=== PATIENT | female | born 1970 | race Caucasian/White ===

== ENCOUNTER 2018-03-06 18:12 | Emergency (ER) | payer BC ==
[2018-03-06] MEDS ORDERED: LORazepam 2 MG/ML SDV ONE (18:43)
[2018-03-06] MEDS ORDERED: LORazepam 2 MG/ML SDV IM ONE (18:47)
--- NOTE | 2018-03-06 21:14 | EDM.PDOCBH ---
ED HPI GENERAL MEDICAL PROBLEM - General Chief Complaint: Behavioral/Psych Stated Complaint: PANIC ATTACK Time Seen by Provider: 03/06/18 19:00 Source of Information: Reports: Patient, Family History Limitations: Reports: No Limitations - History of Present Illness INITIAL COMMENTS - FREE TEXT/NARRATIVE: This is a 47-year-old woman with history of depression and anxiety but has never been treated who suffered a panic attack today. She states that the panic attack started when her daughter and her boyfriend wanted to come over for dinner. Apparently the mother does not approve of the boyfriend and she began to feel like it was "the end of the world", she had shortness of breath, and felt an "impending doom". She states she hasn't had these feelings for years, the last time being when her son was born and she was told she would have to have a . She does admit to having a lot of stress in her life at the moment and that her daughter just recently graduated and is having a hard time with that as well. She has never seen a psychologist or psychiatrist and does not have a PCP in town. She denies any suicidal or homicidal ideation at this time. - Related Data Allergies Allergy/AdvReac Type Severity Reaction Status Date / Time aspirin Allergy Shortness Verified 03/06/18 18:39 of Breath Home Meds: Home Meds . [No Known Home Meds] 03/06/18 [History] Past Medical History - Past Health History Medical/Surgical History: Denies Medical/Surgical History Psychiatric History: Reports: Anxiety - Past Surgical History Female Surgical History: Reports: Section Social & Family History - Family History Family Medical History: Noncontributory - Tobacco Use Smoking Status *Q: Never Smoker - Recreational Drug Use Recreational Drug Use: No ED ROS GENERAL - Review of Systems Review Of Systems: ROS reveals no pertinent complaints other than HPI. ED EXAM, BEHAVIORAL HEALTH - Physical Exam Exam: See Below Exam Limited By: No Limitations General Appearance: Alert, WD/WN, Anxious Eye Exam: Bilateral Eye: EOMI, PERRL Respiratory/Chest: No Respiratory Distress, Lungs Clear, Normal Breath Sounds, No Accessory Muscle Use, Chest Non-Tender Cardiovascular: Normal Peripheral Pulses, Regular Rate, Rhythm, No Edema, No Gallop, No JVD, No Murmur, No Rub, Tachycardia GI/Abdominal: Normal Bowel Sounds, Soft, Non-Tender, No Organomegaly, No Distention, No Abnormal Bruit, No Mass Neurological: Alert, Normal Mood/Affect, CN II-XII Intact, Normal Cognition, Normal Gait, Normal Reflexes, No Motor/Sensory Deficits, Oriented x 3 Psychiatric: Alert, Normal Affect, Normal Cognition, Normal Mood, Oriented, Depressed Mood, Tearful. No: Homicidal Thoughts, Suicidal Plan, Suicidal Thoughts Skin Exam: Warm, Dry, Intact EKG INTERPRETATION EKG Date: 03/06/18 Rhythm: NSR Hepler: Normal P-Wave: Present QRS: Normal ST-T: Normal QT: Normal Comparison: NA - No Prior EKG COURSE, BEHAVIORAL HEALTH COMP - Course Vital Signs: Last Vital Signs Temp Pulse 105 H 03/06/18 18:36 Resp 32 H 03/06/18 18:36 BP 144/84 H 03/06/18 18:36 Pulse Ox 100 03/06/18 18:36 Orders, Labs, Meds: Active Orders 24 hr Category Date Time Status EKG Documentation Completion [RC] STAT Care 03/06/18 19:00 Active Medications Discontinued Medications Generic Name Dose Route Start Last Admin Trade Name Feliberto PRN Reason Stop Dose Admin Lorazepam Confirm 03/06/18 18:43 03/06/18 18:50 Ativan Administered 03/06/18 18:44 Not Given Dose 2 mg .ROUTE .STK-MED ONE Lorazepam 1 mg 03/06/18 18:47 03/06/18 18:49 Ativan IM 03/06/18 18:48 1 mg ONETIME ONE Administration Departure - Departure Time of Disposition: 21:15 Disposition: Home, Self-Care 01 Condition: Fair Clinical Impression: Anxiety, Panic attack as reaction to stress - Discharge Information *PRESCRIPTION DRUG MONITORING PROGRAM REVIEWED*: Not Applicable *COPY OF PRESCRIPTION DRUG MONITORING REPORT IN PATIENT KALLIE: Not Applicable Instructions: Panic Attack, [id number], Living With Anxiety Referrals: PCP,None [Primary Care Provider] - Forms: ED Department Discharge Additional Instructions: You were seen in the ED today for a panic attack. Your heart looked normal on EKG. We recommend that you follow up with a primary care doctor for a referral to a psychologist and/or psychiatrist for further treatment. For now you will be sent home with Lorazepam 1mg every 4-6 hours as needed for anxiety, 10 pills total. Take as needed for panic attack. - My Orders Last 24 Hours: My Active Orders 03/06/18 19:00 EKG Documentation Completion [RC] STAT - Assessment/Plan Last 24 Hours: My Active Orders 03/06/18 19:00 EKG Documentation Completion [RC] STAT
== END 2018-03-06 21:27 | disposition home or self-care (01) ==
LOC: JD.ED 18:12
DX: F41.0 Panic disorder [episodic paroxysmal anxiety] (principal); F43.9 Reaction to severe stress, unspecified; Z88.8 Allergy status to other drugs, medicaments and biological substances
CPT/HCPCS: 93005; 96372; 99283; J2060; 93010; 99284

== ENCOUNTER 2025-02-06 16:22 | Emergency (ER) | payer BC, OTHER ==
[2025-02-06] MEDS ORDERED: Sodium Chloride 0.9% 10 ML Syringe FLUSH PRN (16:38)
[2025-02-06 16:57] LABS: BASOPHILS ABSOLUTE AUTO 0.1 K/mm3 (0.0-0.2); BASOPHILS PERCENT AUTO 0.6 % (0.0-1.0); EOSINOPHILS ABSOLUTE AUTO 0.1 K/mm3 (0.0-0.4); EOSINOPHILS PERCENT AUTO 1.5 % (0.0-6.0); HEMATOCRIT 43.2 % (37.0-47.0); IMMATURE GRAN ABSOLUTE AUTO 0.03 K/mm3 (0.00-0.05); IMMATURE GRAN PERCENT AUTO 0.3 % (0.0-0.4); LYMPHOCYTES ABSOLUTE AUTO 2.2 K/mm3 (1.0-4.8); LYMPHOCYTES PERCENT AUTO 23.1 % (24.0-44.0); MEAN CORPUSCULAR HEMOGLOBIN 26.4 pg (28.0-32.0); MEAN CORPUSCULAR HGB CONC 32.4 g/dl (32.0-36.0); MEAN CORPUSCULAR VOLUME 81.5 fl (83.0-99.0); MEAN PLATELET VOLUME 10.1 fl (9.4-12.3); MONOCYTES ABSOLUTE AUTO 0.7 K/mm3 (0.0-0.8); MONOCYTES PERCENT AUTO 7.8 % (0.0-8.0); NEUTROPHILS ABSOLUTE AUTO 6.3 K/mm3 (1.8-7.7); NEUTROPHILS PERCENT AUTO 66.7 % (41.0-71.0); PLATELET COUNT,PLT 355 K/mm3 (150-400)
[2025-02-06 17:20] LABS: A/G RATIO 0.9 (1-2); ALANINE AMINOTRANSFERASE,ALT 44 U/L (14-59); ALBUMIN 3.8 g/dl (3.4-5.0); ALKALINE PHOSPHATASE 120 U/L (46-116); ANION GAP 12.8 (5-15); ASPARTATE AMNIOTRANSFERASE,AST 15 U/L (15-37); BILIRUBIN TOTAL 0.3 mg/dL (0.2-1.0); BLOOD UREA NITROGEN,BUN 18 mg/dL (7-18); CALCIUM 9.2 mg/dL (8.5-10.1); CARBON DIOXIDE,CO2 28 mEq/L (21-32); CHLORIDE,CL 100 mEq/L (98-107); CREATININE 0.9 mg/dL (0.55-1.02); EST CRCL DRUG DOSING (CG) 57.74 mL/min; ESTIMATED GFR 75 mL/min (>60); GLUCOSE RANDOM 104 mg/dL (70-99); POTASSIUM,K 3.8 mEq/L (3.5-5.1); PROTEIN TOTAL,TP 7.9 g/dl (6.4-8.2); SODIUM,NA 137 mEq/L (136-145)
[2025-02-06 17:25] LABS: TROPONIN I HIGH SENSITIVITY < 4 pg/mL (<=51)
== END 2025-02-06 18:45 ==
LOC: JD.ED 16:22
DX: R07.89 Other chest pain (principal); Z88.6 Allergy status to analgesic agent; Z86.16 Personal history of COVID-19
CPT/HCPCS: 36415; 71046; 71046-26; 80053; 84484; 85025; 85379; 93005; 99285